=== PATIENT | male | born 1965 | race Caucasian/White ===

== ENCOUNTER 2019-02-02 17:16 | Emergency (ER) | payer OTHER ==
[~2019-02-02] VITALS: Ht 167.6 cm; Wt 84.5 kg
[~2019-02-02 17:16] MED LIST: IBUP-1542 PO
[2019-02-02 17:19] VITALS: RESP 18; Ht 167.6 cm; Wt 84.5 kg
[2019-02-02] MEDS ORDERED: ACETAMINOPHEN 500 MG TAB PO STA (18:06)
[2019-02-02] MEDS ORDERED: DIPHTH/TET/ACEL PERTUSS (ADULT) 0.5 ML VIAL IM* ONE (18:30)
[2019-02-02] MEDS ORDERED: LIDOCAINE 1% (MDV) 20 ML INJ SC ONE (18:30)
[2019-02-02 19:41] VITALS: BP 124/81; PULSE 87
== END 2019-02-02 19:49 | disposition home or self-care (01) ==
LOC: FTE 17:16
DX: S11.91XA Laceration without foreign body of unspecified part of neck, initial encounter (principal); W26.8XXA Contact with other sharp object(s), not elsewhere classified, initial encounter; Y92.9 Unspecified place or not applicable; Z23 Encounter for immunization
CPT/HCPCS: 12002; 90471; 90715; Z7502; Z7610

== ENCOUNTER 2019-02-04 19:17 | Emergency (ER) | payer OTHER ==
[~2019-02-04] VITALS: Ht 170.2 cm; Wt 89.3 kg
[2019-02-04 19:19] VITALS: BP 158/64; PULSE 67; RESP 16; Ht 170.2 cm; Wt 89.3 kg
== END 2019-02-04 19:33 | disposition home or self-care (01) ==
LOC: FTE 19:17 → E/R 19:33
DX: Z48.01 Encounter for change or removal of surgical wound dressing (principal)
CPT/HCPCS: 99281

== ENCOUNTER 2019-02-08 18:35 | Emergency (ER) | payer OTHER ==
[~2019-02-08] VITALS: Ht 167.6 cm; Wt 89.3 kg
[2019-02-08 18:45] VITALS: BP 145/75; PULSE 66; RESP 18; Ht 167.6 cm; Wt 89.3 kg
== END 2019-02-08 19:28 | disposition home or self-care (01) ==
LOC: E/R 18:35
DX: Z48.02 Encounter for removal of sutures (principal)
CPT/HCPCS: 99281